=== PATIENT | female | born 1985 | race African-American/Black ===

== ENCOUNTER 2021-06-03 18:30 | Emergency (ER) | payer MEDICAID ==
[~2021-06-03] VITALS: Ht 177.8 cm; Wt 70.0 kg
[2021-06-03] MEDS ORDERED: KETOROLAC 60MG/2ML VIAL IM STA (19:04)
[2021-06-03 19:18] LABS: BASOPHILS % 0.6 % (0.0-2.0); EOSINOPHILS % 1.9 % (0.0-5.0); HEMATOCRIT. 37.8 % (36.0-48.0); HEMOGLOBIN. 12.4 g/dL (12.0-16.0); LYMPHOCYTES % 33.1 % (20.0-50.0); MEAN CORPUSCULAR HEMOGLOBIN 27.6 pg (28.0-32.0); MEAN CORPUSCULAR VOLUME 84.4 fL (81.0-99.0); MEAN PLATELET VOLUME 7.4 fl (7.4-10.4); NEUTROPHILS % 55.4 % (40.0-76.0); PLATELET 329 x1000/uL (130-400); RED BLOOD CELL COUNT 4.48 mill/uL (4.2-5.4); RED CELL DISTRIBUTION WIDTH 14.5 % (11.6-14.6)
[2021-06-03 19:25] LABS: CHLORIDE 111 mEq/L (98-107)
[2021-06-03 20:30] VITALS: BP 122/78
== END 2021-06-03 20:51 | disposition home or self-care (01) ==
LOC: ER 18:30 → EDBD 18:30 → ER 20:51
DX: R07.89 Other chest pain (principal)
CPT/HCPCS: 36415; 71045; 80053; 84484; 85025; 93005; 99285; J1885